=== PATIENT | female | born 1990 | race Caucasian/White ===

== ENCOUNTER → 2023-06-10 | Emergency (ER) | payer BC ==
[~2023-06-10] MED LIST: ACETAMINOPHEN 500 MG TAB ONE; DIPHENHYDRAMINE 50 MG/ML VIAL ONE; METOCLOPRAMIDE 10 MG/2mL INJ ONE; NA CHLORIDE 0.9% 1,000 ML ONE
[2023-06-10 20:00] LABS: Specific Gravity 1.007 (1.005-1.030); Urine Bacteria <20 /HPF (<20); Urine Bilirubin NEGATIVE (Negative); Urine Blood Negative (Negative); Urine Clarity Clear (Clear); Urine Color Colorless (Yellow); Urine Glucose NEGATIVE (Negative); Urine Mucus Slight /HPF (None Seen); Urine Protein NEGATIVE (Negative); Urine RBC <5 /HPF (None Seen); Urine Urobilinogen Normal (Normal); Urine WBC Clump Rare /HPF (None Seen)
--- NOTE | 2023-06-10 20:31 | ER ---
Nurse's Notes [facility] Name: Sophia Gonsalez Age: 32 yrs Sex: Female : 1990 Arrival Date: 06/10/2023 Time: 18:16 Bed 16 Private MD: Diagnosis: Migraine without aura, not intractable Presentation: 06/10 18:43 Chief complaint: Patient states: headache since Thursday, worse today this afternoon, has iw hx of migraines, is approx 16 weeks . Coronavirus screen: At this time, the client does not indicate any symptoms associated with coronavirus-19. Ebola Screen: Patient negative for fever greater than or equal to 101.5 degrees Fahrenheit, and additional compatible Ebola Virus Disease symptoms Patient denies exposure to infectious person. Patient denies travel to an Ebola-affected area in the 21 days before illness onset. No symptoms or risks identified at this time. Initial Sepsis Screen: Does the patient meet any 2 criteria? No. Patient's initial sepsis screen is negative. Does the patient have a suspected source of infection? No. Patient's initial sepsis screen is negative. Risk Assessment: Do you want to hurt yourself or someone else? Patient reports no desire to harm self or others. Onset of symptoms was June 07, 2023. 18:43 Method Of Arrival: Ambulatory iw 18:43 Acuity: JANE 3 iw Triage Assessment: 19:10 Headache History: The patient has had previous headaches and this one is similar to ha1 previous episodes. 20:44 Pain: Also complains of nausea. ha1 Historical: - Allergies: 18:45 Darvocet-N 100; iw - Home Meds: 18:46 None [Active]; iw - PMHx: 18:46 Migraine; iw - PSHx: 18:46 Cholecystectomy; gastric sleeve; iw - Immunization history:: Client reports having NOT received the Covid vaccine. - Social history:: Smoking status: Patient denies any tobacco usage or history of. Screenin:10 [facility] ED Fall Risk Assessment (Adult) History of falling in the last 3 months, ha1 including since admission No falls in past 3 months (0 pts) Confusion or Disorientation No (0 pts) Intoxicated or Sedated No (0 pts) Impaired Gait No (0 pts) Mobility Assist Device Used No (0 pt) Altered Elimination No (0 pt) Score/Fall Risk Level 0 - 2 = Low Risk Maintained a safe environment, Educated pt \T\ family on fall prevention, incl call for assistance when getting out of bed, Hourly rounding (assess needs \T\ fall precautionary measures) done. Abuse screen: Denies threats or abuse. Denies injuries from another. Nutritional screening: No deficits noted. Tuberculosis screening: No symptoms or risk factors identified. Assessment: 19:00 General: Appears uncomfortable, Behavior is cooperative. Pain: Complains of pain in ha1 head Pain does not radiate. Pain currently is 10 out of 10 on a pain scale. Quality of pain is described as sharp, throbbing, Pain began gradually, 3 hours ago. Neuro: Level of Consciousness is awake, alert, obeys commands, Oriented to person, place, time, situation. Neuro: Reports headache in entire. Cardiovascular: Capillary refill < 3 seconds Patient's skin is warm and dry. Respiratory: Airway is patent Respiratory effort is even, unlabored, Respiratory pattern is regular, symmetrical. Derm: Skin is pink, warm \T\ dry. Musculoskeletal: Circulation, motion, and sensation intact. Range of motion: intact in all extremities. 20:10 Reassessment: Patient and/or family updated on plan of care and expected duration. Pain ha1 level reassessed. Patient is alert, oriented x 3, equal unlabored respirations, skin warm/dry/pink. Patient states feeling better. Patient states symptoms have improved. Vital Signs: 18:43 BP 108 / 65; Pulse 56; Resp 16; Temp 97.8; Pulse Ox 100% on R/A; Weight 87.09 kg; iw Height 5 ft. 7 in. ; Pain 8/10; 19:05 BP 101 / 65; Pulse 60; Resp 17 S; Pulse Ox 99% on R/A; ha1 20:00 BP 100 / 56; Pulse 58; Resp 17 S; Pulse Ox 99% on R/A; ha1 18:43 Body Mass Index 30.07 (87.09 kg, 170.18 cm) iw 18:43 Pain Scale: Adult iw ED Course: 18:18 Patient arrived in ED. mr 18:20 [facility] kb 18:20 Juan Jose Carmona MD is Attending Physician. kb 18:45 Triage completed. iw 18:45 Arm band placed on. iw 19:00 Patient has correct armband on for positive identification. Placed in gown. Bed in low ha1 position. Call light in reach. Side rails up X 1. Adult w/ patient. 19:16 Susie Klein, RN is Primary Nurse. ha1 19:19 Inserted saline lock: 22 gauge in left antecubital area, using aseptic technique. oe 20:43 No provider procedures requiring assistance completed. IV discontinued, intact, ha1 bleeding controlled, No redness/swelling at site. Pressure dressing applied. 20:44 Provided Education on: need to follow up with PCP. ha1 Administered Medications: 19:40 Drug: NS 0.9% IV 1000 ml IV at 1000 ml once Route: IV; Rate: 1000 ml; Site: left ha1 antecubital; 20:43 Follow up: Response: No adverse reaction; IV Status: Completed infusion; IV Intake: ha1 1000ml 19:40 Drug: metoCLOPramide IVP 10 mg IVP once; over 1 to 2 minutes Route: IVP; Site: left ha1 antecubital; 20:43 Follow up: Response: No adverse reaction; Marked relief of symptoms ha1 19:43 Drug: diphenhydrAMINE IVP 12.5 mg IVP once Route: IVP; Site: left antecubital; ha1 20:43 Follow up: Response: No adverse reaction; Marked relief of symptoms ha1 19:43 Drug: Acetaminophen PO 1000 mg PO once Route: PO; ha1 20:42 Follow up: Response: No adverse reaction; Pain is decreased ha1 Medication: 20:34 VIS not applicable for this client. ha1 Intake: 20:43 IV: 1000ml; Total: 1000ml. ha1 Outcome: 20:30 Discharge ordered by MD. burch 20:43 Discharged to home ambulatory, with family, ha1 20:43 Condition: stable 20:43 Discharge instructions given to patient, family, Instructed on discharge instructions, follow up and referral plans. Demonstrated understanding of instructions, follow-up care, 20:44 Patient left the ED. ha1 Signatures: Mady Winter, CELL LINER-C CELL LINER-Ckb Sigrid Mcconnell, Reg Reg mr Anita Price, LULU RN iw Paddy Caldwell oe Susie Klein, LULU RN ha1 Corrections: (The following items were deleted from the chart) 18:46 18:45 Allergies: Darvon; iw iw 1846 18:46 PSHx: None; iw iw 18:47 18:43 BP 108 / 65; Pulse 56bpm; Resp 16bpm; Pulse Ox 100% RA; Temp 97.8F; iw iw
--- NOTE | 2023-06-10 20:31 | EDPHYS ---
Physician Documentation [facility] Name: Sophia Gonsalez Age: 32 yrs Sex: Female : 1990 Arrival Date: 06/10/2023 Time: 18:16 Bed 16 Private MD: ED Physician Juan Jose Carmona Historical: - Allergies: 06/10 18:45 Darvocet-N 100; iw - Home Meds: 18:46 None [Active]; iw - PMHx: 18:46 Migraine; iw - PSHx: 18:46 Cholecystectomy; gastric sleeve; iw - Immunization history:: Client reports having NOT received the Covid vaccine. - Social history:: Smoking status: Patient denies any tobacco usage or history of. Vital Signs: 18:43 BP 108 / 65; Pulse 56; Resp 16; Temp 97.8; Pulse Ox 100% on R/A; Weight 87.09 kg; iw Height 5 ft. 7 in. ; Pain 8/10; 19:05 BP 101 / 65; Pulse 60; Resp 17 S; Pulse Ox 99% on R/A; ha1 20:00 BP 100 / 56; Pulse 58; Resp 17 S; Pulse Ox 99% on R/A; ha1 18:43 Body Mass Index 30.07 (87.09 kg, 170.18 cm) iw 18:43 Pain Scale: Adult iw MDM: 18:27 Patient medically screened. kb 06/10 18:47 Order name: Urinalysis W/Microscopic; Complete Time: 20:04 kb 06/10 18:47 Order name: IV Start; Complete Time: 19:18 kb Administered Medications: 19:40 Drug: NS 0.9% IV 1000 ml IV at 1000 ml once Route: IV; Rate: 1000 ml; Site: left ha1 antecubital; 20:43 Follow up: Response: No adverse reaction; IV Status: Completed infusion; IV Intake: ha1 1000ml 19:40 Drug: metoCLOPramide IVP 10 mg IVP once; over 1 to 2 minutes Route: IVP; Site: left ha1 antecubital; 20:43 Follow up: Response: No adverse reaction; Marked relief of symptoms ha1 19:43 Drug: diphenhydrAMINE IVP 12.5 mg IVP once Route: IVP; Site: left antecubital; 1 20:43 Follow up: Response: No adverse reaction; Marked relief of symptoms ha1 19:43 Drug: Acetaminophen PO 1000 mg PO once Route: PO; ha1 20:42 Follow up: Response: No adverse reaction; Pain is decreased ha1 Disposition Summary: 06/10/23 20:30 Discharge Ordered Notes: Location: Home kb Condition: Stable kb Diagnosis - Migraine without aura, not intractable kb Followup: kb - With: Emergency Department - When: As needed - Reason: Worsening of condition Followup: kb - With: Private Physician - When: 2 - 3 days - Reason: Recheck today's complaints, Continuance of care, Re-evaluation by your physician Discharge Instructions: - Discharge Summary Sheet kb - Migraine Headache, [id number] kb Forms: - Medication Reconciliation Form kb - Thank You Letter kb - Antibiotic Education kb - Prescription Opioid Use kb - Patient Portal Instructions kb - Leadership Thank You Letter kb Signatures: Dispatcher [employer] Mady Alcaraz FNP-C FNP-Anita Schulte RN RN Susie Klein RN RN ha1 Corrections: (The following items were deleted from the chart) 18:46 18:45 Allergies: Darvon; [facility] 18:46 18:46 PSHx: None; [facility]
[2023-06-11 01:21] VITALS: TEMP 97.8; O2SAT 99
[2023-06-11 01:37] VITALS: BP 100/56
== END ==
LOC: ER 18:16
DX: O26.892 Other specified pregnancy related conditions, second trimester (principal); G43.009 Migraine without aura, not intractable, without status migrainosus; Z88.5 Allergy status to narcotic agent; Z28.310 Unvaccinated for COVID-19; Z3A.16 16 weeks gestation of pregnancy
CPT/HCPCS: 81001; J2765; J1200; J7030